=== PATIENT | female | born 1985 | race Caucasian/White ===

== ENCOUNTER 2018-03-13 14:40 | Emergency (ER) | payer OTHER ==
[~2018-03-13] VITALS: Ht 170.2 cm; Wt 64.0 kg
[2018-03-13] MEDS ORDERED: SULF1TAB48 PO (14:47)
[2018-03-13] MEDS ORDERED: DEXAMETHASONE 10 MG/ML VIAL IV ONE (16:45)
[2018-03-13] MEDS ORDERED: SODIUM CHLORIDE 0.9% 1,000 ML IV ONE (16:45)
[2018-03-13] MEDS ORDERED: FAMOTIDINE 20MG/2ML VIAL IV ONE (16:45)
[2018-03-13] MEDS ORDERED: DIPHENHYDRAMINE 50MG/ML VIAL IV ONE (16:45)
[2018-03-13] MEDS ORDERED: METOCLOPRAMIDE HCL 10MG/2ML VIAL IV ONE (16:45)
[2018-03-13 17:25] LABS: CLARITY URINE CLOUDY (CLEAR); COLOR URINE YELLOW (YELLOW); KETONES URINE NEGATIVE (NEGATIVE); LEUKOCYTE ESTERASE URINE TRACE (NEGATIVE); NITRITE URINE NEGATIVE (NEGATIVE); OCCULT BLOOD URINE NEGATIVE (NEGATIVE); PROTEIN URINE NEGATIVE (NEGATIVE); SPECIFIC GRAVITY URINE 1.008 (1.005-1.030); UROBILINOGEN URINE 0.2 E.U./dL (0.2-1.0)
[2018-03-13 17:54] LABS: HEMATOCRIT. 28.7 % (36.0-48.0); HEMOGLOBIN. 9.1 g/dL (12.0-16.0); MEAN CORPUSCULAR HEMOGLOBIN 21.7 pg (28.0-32.0); MEAN CORPUSCULAR VOLUME 68.3 fL (81.0-99.0); PLATELET 244 x1000/uL (130-400); RED CELL DISTRIBUTION WIDTH 16.4 % (11.6-14.6)
[2018-03-13 18:01] LABS: CHLORIDE 104 mEq/L (98-107)
[2018-03-13] MEDS ORDERED: POTASSIUM CHLORIDE 20MEQ TABLET SR PO ONE (18:45)
[2018-03-13 19:08] LABS: PLATELET ESTIMATE NORMAL
[2018-03-13 20:06] VITALS: BP 100/68
== END 2018-03-13 20:05 | disposition home or self-care (01) ==
LOC: ER 14:40
DX: T78.40XA Allergy, unspecified, initial encounter (principal); L60.0 Ingrowing nail; L03.019 Cellulitis of unspecified finger; E87.6 Hypokalemia; R51 Headache; X58.XXXA Exposure to other specified factors, initial encounter; F12.10 Cannabis abuse, uncomplicated
CPT/HCPCS: 36415; 70450; 80053; 81003; 85025; 96374; 96375; 99285; J1100; J1200; J2765; J3490; J7030; Z7610